=== PATIENT | female | born 1965 | race Hispanic/Latino ===

== ENCOUNTER → 2024-03-26 | Outpatient (CLI) | payer BC | END | disposition home or self-care (01) | LOC: SHCH 09:20 → EDUNIT# 10:20 | PROVIDERS: ATTEND Internal Medicine Cardiovascular Disease | DX: I70.203 Unspecified atherosclerosis of native arteries of extremities, bilateral legs (principal); I87.2 Venous insufficiency (chronic) (peripheral) | CPT/HCPCS: 93925; 93970 ==

== ENCOUNTER → 2024-05-04 | Outpatient (CLI) | payer BC | END | disposition home or self-care (01) | LOC: SHCH 15:08 → EDUNIT# 15:30 | PROVIDERS: ATTEND Internal Medicine Cardiovascular Disease | DX: I20.0 Unstable angina (principal) | CPT/HCPCS: 93306 ==

== ENCOUNTER → 2024-06-27 | Outpatient (CLI) | payer BC | END | disposition home or self-care (01) | LOC: EDUNIT# 04-26 09:00 → RAH 09:06 | PROVIDERS: ATTEND Internal Medicine Cardiovascular Disease | DX: I20.0 Unstable angina (principal); R07.9 Chest pain, unspecified | CPT/HCPCS: 78452; 93017; A9500 ×2 ==